=== PATIENT | male | born 1950 | race Caucasian/White ===

== ENCOUNTER 2017-04-03 10:22 | Day surgery (SDC) | payer MEDICARE ==
[~2017-04-03] VITALS: Ht 182.9 cm; Wt 100.2 kg
[~2017-04-03 10:22] MED LIST: AMBI12.5 PO; ASPI81 PO; CENTTAB9 PO; CERETAB PO; DIAZ5 PO; LEXA10TA PO; OMEP20CA5 PO
[2017-04-03] MEDS ORDERED: IOHEXOL 350 MG/ML 100 ML BTL (for Cath Lab) OTHER ONE (10:23)
[2017-04-03] MEDS ORDERED: NS 1000P @30 MLS/HR (KVO) IV SCH (11:00)
[2017-04-03 11:04] VITALS: BP 157/87; PULSE 59; RESP 18; TEMP 98; O2SAT 97
[2017-04-03] MEDS ORDERED: HYDR-3583 PO (11:07)
[2017-04-03] MEDS ORDERED: ZOLP10TA3 PO (11:07)
[2017-04-03] MEDS ORDERED: AMBI10TA PO (11:07)
[2017-04-03] MEDS ORDERED: ASPI81TA11 PO (11:07)
[2017-04-03] MEDS ORDERED: AMLO5TAB2 PO (11:07)
[2017-04-03] MEDS ORDERED: OMEP20TA PO (11:07)
[2017-04-03] MEDS ORDERED: INHALER (11:07)
[2017-04-03] MEDS ORDERED: DIAZ5TAB PO (11:07)
[2017-04-03 11:16] LABS: AUTOMATED NEUTROPHIL # 3.3 TH/MM3 (1.8-7.7); BASOPHIL # 0.1 TH/MM3 (0-0.2); EOSINOPHIL # 0.1 TH/MM3 (0-0.4); EOSINOPHIL % 1.7 % (0.0-4.0); HEMATOCRIT 43.3 % (39.0-51.0); HEMO FLAGS DIFF FINAL; LYMPH % 27.4 % (9.0-44.0); LYMPHOCYTE # 1.4 TH/MM3 (1.0-4.8); MEAN CELL VOLUME 86.9 FL (80.0-100.0); MEAN CORPUSCULAR HEMOGLOBIN 29.3 PG (27.0-34.0); MEAN CORPUSCULAR HGB CONC 33.7 % (32.0-36.0); MONO % 7.4 % (0.0-8.0); NEUT % 62.5 % (16.0-70.0); PLATELET COUNT 191 TH/MM3 (150-450); RED BLOOD COUNT 4.98 MIL/MM3 (4.50-5.90); RED CELL DISTRIBUTION WIDTH 13.5 % (11.6-17.2); WHITE BLOOD COUNT 5.3 TH/MM3 (4.0-11.0)
[2017-04-03 11:20] LABS: APTT (PATIENT) 28.8 SEC (24.3-30.1); INTERNATIONAL NORMALIZED RATIO 0.9 RATIO; PROTHROMBIN TIME - PATIENT 10.4 SEC (9.8-11.6)
[2017-04-03 11:32] LABS: BICARBONATE 31.2 MEQ/L (21.0-32.0); POTASSIUM 4.3 MEQ/L (3.5-5.1)
[2017-04-03] MEDS ORDERED: MIDAZOLAM HCL 2 MG/2 ML VIAL ONE ×3 (13:45→14:17)
[2017-04-03] MEDS ORDERED: HEPARIN-NS/PF INJ 1,000 ML ONE (13:45)
[2017-04-03] MEDS ORDERED: SODIUM CHLORID 0.9% 500 ML INJ 500 ML ONE (13:45)
[2017-04-03] MEDS ORDERED: VERAPAMIL HCL 5 MG/2 ML VIAL ONE (14:02)
[2017-04-03] MEDS ORDERED: HEPARIN SODIUM - IV 10,000 UNITS/10 ML VIAL ONE (14:02)
--- NOTE | 2017-04-03 14:30 | EKG ---
Date Performed: 04/03/2017 Time Performed: 11:15:08 PTAGE: 67 years EKG: Sinus bradycardia Normal ECG except for rate NO PREVIOUS TRACING DOCTOR: Balta Nunes Interpretating Date/Time 04/03/2017 14:28:46
[2017-04-03] MEDS ORDERED: SODIUM CHLOR 0.9% 1000 ML INJ 1,000 ML IV ONE (14:40)
[2017-04-03] MEDS ORDERED: ATROPINE SULFATE 1 MG/ML VIAL IVP PRN (14:45)
[2017-04-03] MEDS ORDERED: MISC INFORMATION XX ONE (14:45)
[2017-04-03] MEDS ORDERED: ONDANSETRON HCL 4 MG/2 ML VIAL IV PRN (14:45)
[2017-04-03] MEDS ORDERED: SODIUM CHLOR 0.9% 250 ML INJ 250 ML IV PRN (14:45)
--- NOTE | 2017-04-03 14:47 | CATHPROC ---
[employer] HIS Report Study Information Study Number Admission Scheduled Start Study Start [id number] Apr 03 2017 10:22AM 04/03/2017 Apr 03 2017 1:50PM [place] [facility] Cardiac Catheterization Admit Source Facility Department Other [facility] - Student Support Services Director Physician and Clinical Staff Initial Ham Shafer Surgical Dental Assistant Arias Ozuna,ELEN Recorder Meliza Gaytan,RT(R) Scrub Marisol Rosales RCIS TECH2 Procedures Performed Procedure Location (Site) Vessel Name Angiogram LV LV Ventricle Coronary Angiograms LCA Left Coronary Coronary Angiograms RCA Right Coronary L Heart Cath Wire insertion Fem Art (right) Femoral Art Wire insertion Radial (right) Radial Art. Equipment Time Museum Archivist Description Size Mfg Part Number Used/Scraped TRANSDUCER, TRAlgorithmicsAVE [id number] 14:08 Channel Medsystems * Used W/STOCKCOCK *[id number] 14:32 CARDIVA MEDICAL VASCADE, FR6 CLOSURE SYSTEM FR 6\7 Used *[id number] [id number] *[id number] [id number] *[id number] [id number] *[id number] PIGTAIL ANG. 145 INFINITI [id number] CATHETER *[id number] WIRE, HYDROSTEER 150CM [id number] 14:09 DAIG/ST. KAYLEE MEDICAL 150CM Used ANGLED GLIDE *[id number] 459485 14:08 MALLINCKRODT SYRINGE, ANGIOMAT 150ML 150ML *[id number] Used 2SUB MEDICAL CONCEPT DRAPE, RADIAL FEMORAL FULL 14:08 * D2355 *[id number] Used DEVELOPMENT BODY [id number] 14:08 [employer]shape PACK, CCL CUSTOM * Used *9423557 14:08 [employer] SUPPORT, ARTERIAL ADULT 38278 *6680134 Used [id number] 14:08 Lily [employer] PACER PEN, SKIN DUAL W/ RULER * Used *[id number] SHEATH, FR6 RADIAL PRELUDE 14:08 [employer] MEDICAL FR 6 [id number] Used EASE 11CM [id number] 14:21 [employer] MEDICAL SHEATH, FR6.5 PRELUDE 11CM FR 6.5 [id number] Used *[id number] 14:08 General Blood WIRE, EXCHANGE 260CM 3MMJ 260CM Used *[id number] [id number] 14:08 [facility], 4 PORT * Used *8093033 14:08 [employer]COMED OMNIPAQUE, 350 MG, 150ML 150ML [id number] Used 14:33 [employer]COMED OMNIPAQUE, 350 MG, 150ML 150ML [id number] Used [id number] 14:08 [employer] MED[employer] BLANKET,WARM AIR CCL * Used *[id number] CATHETER, FR5 OPTITORQUE [id number] 14:08 [employer] MEDICAL FR 5 Used RADIAL TIG 4.0 *[id number] History: Current Medications Medication Dosage/Unit Route Frequency Last Date/Time Taken ASA NORVASC Prilosec History: Allergies Allergy Reaction ragweed pollen Irritation Jzuyvbl-Znr-Dze Reductase Inhibitor prednisone History: Risk Factors Family History of Hypertension Dyslipidemia Previous MS Previous Heart Failure Premature CAD Yes Yes No No No Prior Valve Prior PCI Prior CABG Surgery No No No Cerebrovascular Peripheral Artery Chronic Lung On Dialysis Diabetes Disease Disease Disease No No No No No History: Symptoms/Diagnosis Selection Items Chest pain SOB History: Stress Tests Stress or Imaging Studies Performed Yes Standard Exercise Stress Test No Stress Echo No Stress Test SPECT Stress Test SPECT Result Stress Test SPECT Ischemia Risk/Extent Yes Positive High Stress Test CMR No Cardiac CTA Coronary Calcium Score No No History: Other Disease Selection Items HTN History: Other Current Smoker Method Quit Packs a Day Years Used Pack Years No Cigarettes 30 Years Ago 3 20 60 Labs Hgb (g/dl) Hct (%) RBC (MIL/MM3) WBC (l/cumm) Platelets (thousands) 11.60-17.00 35.00-51.00 4.00-5.90 4.00-11.00 150.00-450.00 14.6 43.3 4.9 5.3 191 Glucose (mg/dl) BUN (mg/dl) Creatinine (mg/dl) BUN:Creatinine (1:x) 74.00-106.00 7.00-18.00 0.50-1.30 10.00-20.00 106 12 1.1 10.9 Na (meq/l) K (meq/l) Cl (meq/l) CO2 (mmol/L) Ca (mg/dl) 136.00-145.00 3.50-5.10 98.00-107.00 21.00-32.00 8.50-10.10 140 4.3 105 31.2 9.1 PT (sec) PTT (sec) INR (PTT:PT) 9.80-11.60 24.30-30.10 0.90-1.10 10.4 28.8 0.9 CPK-MB (ng/ML) 0.50-3.60 Not Drawn Medication Medication Total Dose (Bolus/Oral) Medication Total Dosage/Unit 1% XYLOCAINE 40 mL FENTANYL 150 mcg RADIAL COCKTAIL 10 mL (Bolus) VERSED 5 mg Medications (Bolus/Oral) Medication Time Given Dosage/Unit Administered By Reason VERSED 04/03/2017 1:57:40 PM 1 mg JesusHam silva 1 mg VERSED given by Ham Lee in Left Antecubital via Peripheral IV. VERSED 04/03/2017 1:58:11 PM 1 mg Arias Ozuna 1 mg VERSED given in lab by Arias Ozuna RN via Peripheral IV. VERSED 04/03/2017 2:00:40 PM 2 mg FerSade simentaley 2 mg VERSED given in lab by Arias Ozuna RN via Peripheral IV. FENTANYL 04/03/2017 2:01:18 PM 50 mcg Arias Ozuna 50 mcg FENTANYL given by Arias Ozuna RN in Left Antecubital via Peripheral IV. FENTANYL 04/03/2017 2:03:47 PM 50 mcg Arias Ozuna 50 mcg FENTANYL given by Arias Ozuna RN via Peripheral IV. 1% XYLOCAINE 04/03/2017 2:04:52 PM 20 mL Ham Lee 20 mL 1% XYLOCAINE given in lab by Ham Lee in Right Radial via Subcutaneous. Ntg 200mcg Verapamil 2.5mg Heparin RADIAL COCKTAIL 04/03/2017 2:11:07 PM 5 mL (Bolus) Jesus, Ham 2500U 5 mL (Bolus) RADIAL COCKTAIL given in lab by Ham Lee in Right Radial via Radial. Using [Solution Name]. Reason: Ntg 200mcg Verapamil 2.5mg Heparin 2500U. Ntg 200mcg Verapamil 2.5mg Heparin RADIAL COCKTAIL 04/03/2017 2:12:28 PM 5 mL (Bolus) Jesus Ham 2500U 5 mL (Bolus) RADIAL COCKTAIL given in lab by Ham Lee via Radial. Using [Solution Name]. Reason: Ntg 200mcg Verapamil 2.5mg Heparin 2500U. 2nd cocktail VERSED 04/03/2017 2:17:24 PM 1 mg Arias Ozuna 1 mg VERSED given in lab by Arias Ozuna, ELEN via Peripheral IV. FENTANYL 04/03/2017 2:17:34 PM 50 mcg Arias Ozuna 50 mcg FENTANYL given in lab by Arias Ozuna, ELEN via Peripheral IV. 1% XYLOCAINE 04/03/2017 2:18:05 PM 20 mL Ham Lee 20 mL 1% XYLOCAINE given in lab by Ham Lee in Right Groin via Subcutaneous. Initial Case Assessment Cardiovascular HR Rhythm NIBP 63 reg 146/90 Edema Present Skin color Skin None Normal Warm Circulatory - Right Pulses Dorsalis Pedis Femoral Radial 3 2 2 Scale (0,1,2,3,4,d) Scale (0,1,2,3,4,d) Circulatory - Lower Extremities Color Lower Right Normal Neurological State Oriented to time-place- Alert Moves all extremities person Respiration - General Respiration Rate SpO2 (%) (B/min) 11 95 Final Case Assessment Cardiovascular HR Rhythm NIBP Chest Pain 67 REG 128/66 0 Edema Present Skin color Skin None Normal Warm Circulatory - Right Pulses Dorsalis Pedis Femoral Radial 3 2 2 Scale (0,1,2,3,4,d) Scale (0,1,2,3,4,d) Circulatory - Lower Extremities Color Lower Right Normal Neurological State Oriented to time-place- Alert Moves all extremities person Respiration - General Respiration Rate SpO2 (%) (B/min) 15 97 Chronological Log Time Study Chronological Log 13:44:30 Patient arrived via Bed. 13:46:16 Consent signed by the physician and the patient and verified by the Student Support Services Director staff. 13:47:21 Pre-op and post- op instructions given; patient acknowledges understanding of instructions. 13:48:25 Verbal Stimulation=2 Physical Stimulation=2 Airway=2 Respiration=2 TOTAL=8. (0=absent, 1=li mited, 2=present) 13:49:49 Allens test performed on the right radial and ulnar artery with a positive result by Elisabeth ramirez Vitals capture started with the following parameters, Patient=Adult, Interval=5 min, Initial Pr hywdyj=859 mmHg, 13:50:25 Deflation Rate=5 mmHg, Cuff placed on Left Ankle 13:50:56 HR=61 bpm, FIOX=708/93 mmhg, SpO2=98.0 %, Resp=14 B/min, Pain=0, Pradeep=10, Karimi=2 13:52:10 Reference ECG taken 13:52:12 Skin Breakdown-none 13:54:09 Patient Name, D.O.B, / Armband Verified By R.N. 13:55:28 A # 20 IV was noted in the Antecubital (left). Grade = 0 13:55:59 HR=64 bpm, IWYH=688/99 mmhg, SpO2=98.0 %, Resp=15 B/min, Pain=0, Praedep=10, Karimi=2 13:57:40 1 mg VERSED given by Ham Lee in Left Antecubital via Peripheral IV. 13:58:11 1 mg VERSED given in lab by Arias Ozuna RN via Peripheral IV. 13:59:57 MD arrived. 14:00:40 2 mg VERSED given in lab by Arias Ozuna RN via Peripheral IV. 14:00:58 HR=64 bpm, AOGA=225/90 mmhg, SpO2=97.0 %, Resp=11 B/min, Pain=0, Pradeep=10, Karimi=2 14:01:18 50 mcg FENTANYL given by Arias Ozuna RN in Left Antecubital via Peripheral IV. 14:03:47 50 mcg FENTANYL given by Arias Ozuna RN via Peripheral IV. 14:03:52 History and physical on the chart or being dictated. Assessment: Initial Case, HR=63 BPM, Rhythm=reg, URQC=457/90 mmhg, Edema=None, Color=Normal, Sk in = Warm Right Pulses: Stephan Ped=3, Femoral=2, Radial=2 14:03:53 Lower Right Extremities: Color=Normal Neurological: State=Alert, Ox3, HARDY Respiration: Resp=11 B/min, SpO2=95 % Time Out. Correct patient, correct procedure,correct physician, ,power injector not loaded with contrast with surgical 14:04:31 team present. Time Out Concurred by MD, individual staff and YARN SALVAGER in procedure 14:04:40 Case Start 14:04:42 Verbal Stimulation=2 Physical Stimulation=2 Airway=2 Respiration=2 TOTAL=8. (0=absent, 1=li mited, 2=present) 14:04:52 20 mL 1% XYLOCAINE given in lab by Ham Lee in Right Radial via Subcutaneous. 14:05:06 Pressure channel 1 zeroed. 14:05:55 HR=62 bpm, ZQWN=740/91 mmhg, SpO2=96.0 %, Resp=9 B/min, Pain=0, Pradeep=10, Karimi=2 14:08:21 Access site was Radial Artery.RT 14:08:42 A WIRE, HYDROSTEER 150CM ANGLED GLIDE 150CM was inserted via Radial (right). A SHEATH, FR6 RADIAL PRELUDE EASE 11CM FR 6 was advanced into the Radial (right) using the Perc utaneous 14:10:56 technique. 14:10:58 HR=64 bpm, JEDK=365/71 mmhg, SpO2=90.0 %, Resp=4 B/min, Pain=0, Pradeep=10, Karimi=2 5 mL (Bolus) RADIAL COCKTAIL given in lab by Ham Lee in Right Radial via Radial. Using [So lution Name]. Reason: 14:11:07 Ntg 200mcg Verapamil 2.5mg Heparin 2500U. 5 mL (Bolus) RADIAL COCKTAIL given in lab by Ham Lee via Radial. Using [Solution Name]. Re ason: Ntg 200mcg 14:12:28 Verapamil 2.5mg Heparin 2500U. 2nd cocktail After removing the current catheter a JR 5.0 INFINITI CATHETER FR 5 was advanced over a Marino MEHTA 14:12:59 150CM ANGLED GLIDE 150CM. 14:15:57 HR=62 bpm, PZTW=284/76 mmhg, SpO2=94.0 %, Resp=15 B/min, Pain=0, Pradeep=10, Kairmi=2 14:16:21 The previous wire was exchanged for a WIRE, EXCHANGE 260CM 3MMJ 260CM. 14:17:15 Wire removed 14:17:19 Catheter was removed 14:17:24 1 mg VERSED given in lab by Arias Ozuna, RN via Peripheral IV. 14:17:34 50 mcg FENTANYL given in lab by Arias Ozuna, RN via Peripheral IV. 14:17:37 RADIAL APPROACH ABORTED DUE TO TORTUOSITY 14:18:05 20 mL 1% XYLOCAINE given in lab by Ham Lee in Right Groin via Subcutaneous. 14:20:26 Access site was Right Femoral Artery. 14:20:30 A WIRE, EXCHANGE 260CM 3MMJ 260CM was inserted via Fem Art (right). 14:20:35 A SHEATH, FR6.5 PRELUDE 11CM FR 6.5 was advanced into the Fem Art (right) using the Percuta neous technique. 14:20:57 HR=57 bpm, VFRV=373/77 mmhg, SpO2=94.0 %, Resp=7 B/min, Pain=0, Pradeep=10, Karimi=2 Recorded Pressure: Ao, HR=56, Condition=Condition 1 14:21:09 (Aorta) Ao 107/63/81 A JL 4.0 INFINITI CATHETER FR 6 was advanced over a wire. OMNIPAQUE, 350 MG, 150ML 150ML was us ed for 14:21:27 injections. 14:22:50 The LCA was injected and visualized at various angles. OMNIPAQUE, 350 MG, 150ML 150ML used . 14:25:40 Catheter was removed 14:25:58 HR=72 bpm, DZKK=601/75 mmhg, SpO2=94.0 %, Resp=7 B/min, Pain=0, Pradeep=10, Karimi=2 A 3DRC INFINITI CATHETER FR 6 was advanced over a wire. OMNIPAQUE, 350 MG, 150ML 150ML was used for 14:26:03 injections. 14:26:32 The RCA was injected and visualized at various angles. OMNIPAQUE, 350 MG, 150ML 150ML used . 14:26:58 Catheter was removed Recorded Pressure: LV, HR=68, Condition=Condition 1 14:28:09 (Left Ventricle) LV 109/4/12 14:28:37 The LV was injected at 12 cc/sec for a total of 42. OMNIPAQUE, 350 MG, 150ML 150ML used. Recorded Pressure: LV, Ao, HR=71, Condition=Condition 1 14:29:51 (Left Ventricle) LV 122/5/20, (Aorta) Ao 121/66/90 14:30:15 Catheter was removed 14:30:23 An injection in the Fem Art (right) was made through the SHEATH, FR6.5 PRELUDE 11CM FR 6.5. Assessment: Final Case, HR=67 BPM, Rhythm=REG, LXUB=330/66 mmhg, Chest Pain=0, Edema=None, [place] r=Normal, Skin = Warm Right Pulses: Stephan Ped=3, Femoral=2, Radial=2 14:30:31 Lower Right Extremities: Color=Normal Neurological: State=Alert, Ox3, HARDY Respiration: Resp=15 B/min, SpO2=97 % 14:31:01 HR=66 bpm, PMND=848/66 mmhg, SpO2=94.0 %, Resp=24 B/min, Pain=0, Pradeep=10, Karimi=2 14:31:14 Catheter(s) removed without difficulty 14:31:27 VASCADE, FR6 CLOSURE SYSTEM FR 6\7 placement in the Fem Art (right) 14:32:27 Case End 14:32:29 Sterile dressing applied to site 14:32:30 No case complications noted. 14:32:30 Cine recording checked. 14:32:34 Bedside Report will be given. 14:32:35 Contrast Scanned 14:33:03 A Left Heart Cath was performed. 14:33:07 Clinical correlaton risk stratification. 14:36:00 HR=65 bpm, OYCC=098/71 mmhg, SpO2=96.0 %, Resp=11 B/min, Pain=0, Pradeep=10, Karimi=2 14:40:59 HR=58 bpm, NIGB=805/72 mmhg, SpO2=96.0 %, Resp=9 B/min, Pain=0, Pradeep=10, Karimi=2 Radial Compression Device Used. 15 mLs of air placed in VASCADE, FR6 CLOSURE SYSTEM FR 6\7. Aff ected hand 98 % 14:45:08 O2 saturation. 14:45:58 MAJQ=334/73 mmhg, SpO2=98.0 %, Pain=0, Pradeep=10, Karimi=2 14:46:08 Vitals capture stopped. End Study - Contrast Media Used In Study Contrast Total Opened (mL) Total Used (mL) Total Wasted (mL) Omnipaque 80 80 0 End Study - Maximum Contrast Load Max Contrast Load (mL) 450.4 End Study - Radiation Exposure Fluoro Time (minutes) 6.5 End Study - Sheaths Sheaths Pulled By Sheath Hold Time (min) Ham Lee End Study - Patient Disposition Complications Transferred To No Outpatient Bed
--- NOTE | 2017-04-03 15:46 | MA ---
cc: JIM REID M.D. DATE 04/03/2017 PROCEDURE Left heart catheterization, selective coronary angiography, left ventriculography. PROCEDURE NOTE The patient was brought to the cardiac catheterization laboratory in a fasting state after having signed informed consent. The right radial and right groin regions were prepped and draped as per policy. Arterial access was obtained via the right radial artery and a 6-Togolese sheath placed. We are unable to traverse the elbow region with a Glidewire. Contrast injection shows the wire to be in a small branch. It was retracted and placed into the main vessel. However, there is now evident a loop. Traversing the loop was difficult, so it was decided to do the case through the right femoral artery approach. Arterial access was obtained via the right femoral artery and a 6-Togolese sheath placed. Coronary arteriography was performed using 6-Togolese Enio left 4.0 and right progressive catheters. Left ventriculography was done using a standard 6-Togolese pigtail. There were no apparent immediate complications. A radial artery compression band was applied to the right wrist. The right femoral arteriotomy site was closed with VASCADE. HEMODYNAMIC RESULTS Left ventricle 122 with an end-diastolic pressure of 18. Aorta 121/66 with a mean of 90. There was no significant transvalvular aortic gradient on pullback of the pigtail catheter. CORONARY ARTERIOGRAPHY The left main is normal. The left anterior descending is a relatively small vessel giving rise to overall small diagonals. The proximal LAD has diffuse disease up to 40% severity. In the mid-LAD there is a somewhat eccentric 25% lesion. There are minimal luminal irregularities in the distal LAD. The diagonals appear to be free of disease. The left circumflex is a fairly large codominant vessel giving rise to a small to medium-sized tortuous obtuse marginal which has somewhat eccentric 40% proximal stenosis. There is a small ramus intermedius which appears to be normal. The right coronary artery is a medium-sized vessel with up to 40% mid stenosis. LEFT VENTRICULOGRAPHY Contrast injection of the left ventricle reveals no segmental wall motion abnormalities. Ejection fraction is estimated at 55%. CONCLUSION 1. Overall mild to moderate three-vessel coronary artery disease with no definite high-grade stenosis. 2. Normal left ventricular function with estimated ejection fraction of 55%. MD TOMAS Downing/NAHUN /2:37 PM /3:35 PM YANNI
== END 2017-04-03 19:00 | disposition home or self-care (01) ==
LOC: HDOC 10:22 → HDIC 10:23 → HDOC 19:00
PROVIDERS: ATTEND Internal Medicine Cardiovascular Disease
DX: I25.10 Atherosclerotic heart disease of native coronary artery without angina pectoris (principal); I10 Essential (primary) hypertension
CPT/HCPCS: 80048; 85025; 85610; 85730; 93005; 93458; C1769; C1893; J1644; J2250; J3010; J7040; Q9967